=== PATIENT | female | born 1940 | race Caucasian/White ===

== ENCOUNTER → 2016-12-13 | Outpatient (CLI) | payer MEDICARE, BC ==
[~2016-12-13] MED LIST: ASCO100016 PO; HYDR500C PO; MULT1TAB61 PO; OMEG1CAP73 PO; TYLE325T PO; XARE10TA PO
== END ==
LOC: PLAB 08:10
PROVIDERS: ATTEND Family Medicine
DX: L65.9 Nonscarring hair loss, unspecified (principal)
CPT/HCPCS: 36415; 84443

== ENCOUNTER → 2017-02-14 | Outpatient (CLI) | payer MEDICARE, BC ==
[2017-02-14 11:45] LABS: AUTOMATED NEUTROPHIL # 3.6 TH/MM3 (1.8-7.7); BASOPHIL % 0.7 % (0.0-2.0); EOSINOPHIL % 0.5 % (0.0-4.0); HEMATOCRIT 38.8 % (35.0-46.0); HEMO FLAGS DIFF FINAL; LYMPHOCYTE # 1.5 TH/MM3 (1.0-4.8); MEAN CELL VOLUME 105.5 FL (80.0-100.0); MEAN CORPUSCULAR HEMOGLOBIN 35.7 PG (27.0-34.0); MEAN CORPUSCULAR HGB CONC 33.9 % (32.0-36.0); MONO % 17.4 % (0.0-8.0); NEUT % 57.4 % (16.0-70.0); PLATELET COUNT 220 TH/MM3 (150-450); RED BLOOD COUNT 3.68 MIL/MM3 (4.00-5.30); RED CELL DISTRIBUTION WIDTH 12.5 % (11.6-17.2); WHITE BLOOD COUNT 6.2 TH/MM3 (4.0-11.0)
--- NOTE | 2017-02-15 21:14 | EKG ---
Date Performed: 02/14/2017 Time Performed: 11:37:24 PTAGE: 76 years EKG: Sinus rhythm . Normal ECG NO PREVIOUS TRACING DOCTOR: Syeda James Interpretating Date/Time 02/15/2017 21:10:57
[2017-02-16 15:53] LABS: MYELOPEROXIDASE LESS THAN 1.0 AI (<1.0); PROTEINASE-3 LESS THAN 1.0 AI (<1.0)
== END ==
LOC: PHPRE 10:27
PROVIDERS: ATTEND Ophthalmology
DX: Z01.810 Encounter for preprocedural cardiovascular examination (principal); Z01.812 Encounter for preprocedural laboratory examination; D69.1 Qualitative platelet defects
CPT/HCPCS: 36415; 85025; 86021; 93005

== ENCOUNTER → 2017-05-03 | Outpatient (CLI) | payer MEDICARE, BC ==
[2017-05-03 10:40] LABS: HEMATOCRIT 37.9 % (35.0-46.0); MEAN CELL VOLUME 105.4 FL (80.0-100.0); MEAN CORPUSCULAR HEMOGLOBIN 34.7 PG (27.0-34.0); PLATELET COUNT 284 TH/MM3 (150-450); RED BLOOD COUNT 3.59 MIL/MM3 (4.00-5.30); RED CELL DISTRIBUTION WIDTH 12.9 % (11.6-17.2); REVIEW FLAG FINAL; WHITE BLOOD COUNT 7.2 TH/MM3 (4.0-11.0)
== END ==
LOC: PHPRE 10:05
PROVIDERS: ATTEND Ophthalmology
DX: Z01.812 Encounter for preprocedural laboratory examination (principal); H26.9 Unspecified cataract
CPT/HCPCS: 36415; 85027

== ENCOUNTER → 2017-05-30 | Day surgery (SDC) | payer MEDICARE, BC ==
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
--- NOTE | 2017-05-10 09:59 | MH ---
cc: LUCIO ACOSTA DATE OF ADMISSION 05/30/2017 ADMISSION DIAGNOSIS Cataract left eye. HISTORY OF PRESENT ILLNESS This 76-year-old white female is coming through [facility] for the purpose of a lens extraction of the left eye with intraocular lens implant under local anesthesia. She has noted decreasing visual acuity interfering with her daily activities and elected to have the above procedure. Her best corrected visual acuity is 20/40 -1/+1 in the right eye and 20/50 -2/+2 in the left eye in room light. She also has significant astigmatism and is now interested in a Toric intraocular lens if possible at the procedure. PAST MEDICAL HISTORY The patient has a history of: 1. Blood clot in the left leg in the past as well as a platelet Disorder 2. A fractured left leg. 3. The patient does have chronic open angle glaucoma controlled with medication PAST SURGICAL HISTORY Includes three C-sections. MEDICATIONS Daily medications include: 1. Fish oil 2. Centrum Silver 3. Vitamin D 4. Xarelto 5. Hydroxyurea 6. Travatan Z eye drops at bedtime in each eye. ALLERGIES SHE IS ALLERGIC TO STRAWBERRIES AND YELLOW JACKET WASPS AND RED ANTS. SOCIAL HISTORY She does not smoke and has a glass of wine every other day. FAMILY HISTORY The family history is noncontributory. REVIEW OF SYSTEMS HEAD: Patient denies severe headaches, dizziness or recent head injury. EARS: Patient denies hearing loss, ear pain, discharge or ringing in the ears. NOSE: Patient denies nasal discharge, obstruction or frequent colds. MOUTH AND THROAT: Patient denies soreness of the mouth or tongue, bleeding gums, trouble swallowing, changes in voice or sore throat. NECK: Patient denies neck pain or swelling, limitation of neck movement or neck injury. CARDIOPULMONARY SYSTEM: Denies shortness of breath, orthopnea, chronic cough, sputum production, hemoptysis, chest pain, wheezing, or light-headedness. GI SYSTEM: Patient denies poor appetite, nausea, vomiting, abdominal pain, ulcers, or change in bowel habits. She does have hemorrhoids. SYSTEM: The patient denies urinary frequency, dysuria, change in urine color. NERVOUS SYSTEM: Patient denies convulsions, vertigo, stroke, numbness or weakness. PHYSICAL EXAMINATION VITAL SIGNS: Blood pressure is 102/58, pulse 72, respirations 16. HEAD: Normocephalic, atraumatic. NOSE: Without rhinorrhea. THROAT: Clear. NECK: Supple. CHEST: Clear. HEART: Regular rhythm. ABDOMEN: Without tenderness. EXTREMITIES: Without edema. NEUROLOGIC: Within normal limits. MENTAL STATUS: Within normal limits. EYE EXAMINATION The patient's best corrected visual acuity is 20/40 -1/+1 in the right eye and 20/50 -2/+2 in the left eye in room light. Visual frey are full to confrontation testing. Extraocular muscle exam reveals full versions with orthophoria in the distance and exophoria at near. Her pupils are 3 mm equal, round, reactive to light without afferent defect. The anterior segment examination reveals a papilloma of the right upper lid. The patient has a peripheral iridectomy in each eye and corneal guttata. There are nuclear sclerotic cataracts bilaterally. Intraocular pressure is 17 in the right eye and 15 in the left by applanation tonometry. Dilated fundus exam revealed sharp disks with cup-to-disk ratio of 0.3 in the right eye and 0.4 in the left. The macula is clear. A posterior vitreous detachment is present bilaterally. Of note, on the exam, the patient does have four diopters approximately of astigmatism in each eye and we will address this with a Toric intraocular lens if possible. IMPRESSION 1. Bilateral cataracts. 2. Status post laser peripheral iridectomy in both eyes for narrow anterior chamber angles in the past. 3. Chronic open angle glaucoma. 4. Corneal guttata 5. Posterior vitreous detachment both eyes PLAN Lens extraction of the left eye with Toric intraocular lens if possible under local anesthesia through [facility]. The patient has been cleared medically. She has been counseled as to the risks, benefits and alternatives and elected to proceed. She understands we may not use the Toric intraocular lens if there is any contraindications during surgery. I feel that cataract surgery will improve the quality of life and activities of daily living in this patient. MD LITA Yan/TERI /8:25 AM /9:34 AM
[~2017-05-30] VITALS: Ht 157.5 cm; Wt 54.0 kg
[~2017-05-30] MED LIST changes: +ACETYLCHOLINE CHL OPHT SOLN 1:100 2 ML VIAL ONE; +CHLORHEXIDINE GLUCONATE 2 % 1 PACK (2 CLOTHS) TOPICAL PRN; +EPINEPHrine HCL (1:1000) 1 MG/ML VIAL ONE; +HYALURONIDASE/LIDOCAINE/BUPIVACAINE 4.5 ML SYR LEFT EYE ONE; +HYALURONIDASE/LIDOCAINE/BUPIVACAINE 6 ML SYR LEFT EYE ONE; +INSULIN HUMAN REGULAR 1,000 UNITS/10 ML VIAL SQ PRN; +LACTATED RINGER'S 1000 ML IV PRN; +METOPROLOL TARTRATE 25 MG TAB PO PRN; +PILOCARPINE HCL 2% OPHT SOLN 15 ML BTL ONE; +POVIDONE IODINE 5% (ANTISEPSIS KIT) 4 APPLICATIONS EACH NARE PRN; +PROPARACAINE HCL 0.5% OPHT SOLN 15 ML BTL LEFT EYE ONE; +PROPOFOL 200 MG/20 ML AMP ONE; +SODIUM CHLORID 0.9% 500 ML IV PRN; +TOBRAMYCIN/DEXAMETHASONE OPTH OINT 3.5 GM TUBE ONE; +VISCOAT OPHT IRRIG SOLN 0.75 ML SYRINGE ONE; +acetaZOLAMIDE SEQUELS 500 MG SUSTAINED RELEASE CAP ONE
[2017-05-30 09:34] VITALS: PULSE 66
[2017-05-30] MEDS: PHENYLEPHRINE HCL 2.5% OPTH SOLN 2 ML BTL LEFT EYE SCH ×4 (09:35→09:44)
[2017-05-30] MEDS: TROPICAMIDE 1% OPHT SOLN 15 ML BTL LEFT EYE SCH ×4 (09:35→09:44)
[2017-05-30] MEDS: CYCLOPENTOLATE HCL 1% OPHT SOLN 2 ML BTL LEFT EYE SCH ×4 (09:35→09:44)
[2017-05-30] MEDS: DICLOFENAC SOD 0.1% OPHT SOLN 2.5 ML BTL LEFT EYE SCH ×4 (09:35→09:44)
[2017-05-30] MEDS: GATIFLOXACIN 0.5% OPHT SOLN 2.5 ML BTL LEFT EYE SCH ×4 (09:35→09:44)
[2017-05-30 11:25] VITALS: PULSE 65
[2017-05-30 12:55] VITALS: TEMP 98
[2017-05-30 13:20] VITALS: BP 135/73; PULSE 60; RESP 14; O2SAT 97
--- NOTE | 2017-05-31 22:39 | MP ---
cc: LUCIO FREITAS [facility] DATE OF SURGERY: 05/30/2017 PREOPERATIVE DIAGNOSIS: Cataract left eye. POSTOPERATIVE DIAGNOSIS: Cataract left eye. OPERATION: Extracapsular cataract extraction with posterior chamber intraocular lens implant by phacoemulsification, left eye. SURGEON: Lucio Freitas M.D. ANESTHESIA: Local. COMPLICATIONS: None. INDICATIONS: See history and physical previously dictated. OPERATIVE PROCEDURE: The patient's left eye was marked at the 6 o'clock position at the limbus in the preop holding area. The patient had adequate retrobulbar and eyelid blocks administered in the holding area and was brought to the operating room. The left eye was prepped and draped in the usual sterile ophthalmic manner. A lid speculum was inserted in the left eye. A 4-0 silk bridle suture was placed through the conjunctiva near the superior rectus muscle and it was tagged to the drape. A fornix-based conjunctival flap was prepared spanning approximately 5 mm in width. Hemostasis was obtained with wet-field cautery. A 3.5 mm groove was made 1 mm from the limbus and dissected up to the limbus in the form of a scleral pocket incision. A stab incision was then made at the 2 o'clock position. Viscoelastic was injected into the anterior chamber. The anterior chamber was entered with a 2.75 mm keratome through the scleral pocket incision. A 360 degree continuous curvilinear capsulorrhexis was then performed. Hydrodissection was utilized to divide the nucleus into inner and outer components and to separate the cortex from the capsule. Phacoemulsification was then utilized to remove the nucleus. The outer nuclear layer was removed with irrigation and aspiration and short bursts of ultrasound as necessary. The cortex was removed with the irrigation/aspiration handpiece. The posterior capsule was polished with the capsule polisher. Viscoelastic was injected into the capsular bag. The intraocular lens was inspected and found to be in good condition. The lens utilized was an Yahir, model number [id number] with a power of 24.5 diopters. The lens was inserted into the capsular bag and rotated so that the alignment pradhan on the toric lens were at 174 degrees. The viscoelastic in the anterior chamber was then removed with the irrigation-aspiration handpiece. Viscoelastic was also removed from beneath the intraocular lens. The anterior chamber was filled with Miochol-E through the stab incision and pressurized. The wound was checked for leaks at this pressure and normalized pressure, and there were none. The 4-0 bridle suture was removed. The conjunctival flap was brought down over the wound and secured with cautery. Pilocarpine 2% eye drops were instilled topically. The lid speculum was removed. TobraDex ophthalmic ointment was applied. The eye was double patched and shielded. The patient tolerated the procedure well and left the Operating Room in satisfactory condition. MD LITA Yan/FLAVIA /2:23 PM /10:29 PM EMETERIO
== END | disposition home or self-care (01) ==
LOC: PHSDC 08:53
PROVIDERS: ATTEND Ophthalmology
DX: H25.12 Age-related nuclear cataract, left eye (principal); H52.202 Unspecified astigmatism, left eye; H43.813 Vitreous degeneration, bilateral; D69.1 Qualitative platelet defects; Z79.01 Long term (current) use of anticoagulants
CPT/HCPCS: 00142; 66984; J0171; J7040; V2632; V2787

== ENCOUNTER → 2017-06-13 | Outpatient (CLI) | payer MEDICARE, BC ==
[~2017-06-13] MED LIST changes: -ACETYLCHOLINE CHL OPHT SOLN 1:100 2 ML VIAL ONE; -CHLORHEXIDINE GLUCONATE 2 % 1 PACK (2 CLOTHS) TOPICAL PRN; -EPINEPHrine HCL (1:1000) 1 MG/ML VIAL ONE; -HYALURONIDASE/LIDOCAINE/BUPIVACAINE 4.5 ML SYR LEFT EYE ONE; -HYALURONIDASE/LIDOCAINE/BUPIVACAINE 6 ML SYR LEFT EYE ONE; -INSULIN HUMAN REGULAR 1,000 UNITS/10 ML VIAL SQ PRN; -LACTATED RINGER'S 1000 ML IV PRN; -METOPROLOL TARTRATE 25 MG TAB PO PRN; -PILOCARPINE HCL 2% OPHT SOLN 15 ML BTL ONE; -POVIDONE IODINE 5% (ANTISEPSIS KIT) 4 APPLICATIONS EACH NARE PRN; -PROPARACAINE HCL 0.5% OPHT SOLN 15 ML BTL LEFT EYE ONE; -PROPOFOL 200 MG/20 ML AMP ONE; -SODIUM CHLORID 0.9% 500 ML IV PRN; -TOBRAMYCIN/DEXAMETHASONE OPTH OINT 3.5 GM TUBE ONE; -VISCOAT OPHT IRRIG SOLN 0.75 ML SYRINGE ONE; -acetaZOLAMIDE SEQUELS 500 MG SUSTAINED RELEASE CAP ONE
[2017-06-13 13:26] LABS: AUTOMATED NEUTROPHIL # 4.6 TH/MM3 (1.8-7.7); BASOPHIL % 0.5 % (0.0-2.0); EOSINOPHIL % 0.5 % (0.0-4.0); HEMATOCRIT 41.2 % (35.0-46.0); HEMO FLAGS DIFF FINAL; LYMPH % 20.8 % (9.0-44.0); LYMPHOCYTE # 1.5 TH/MM3 (1.0-4.8); MEAN CELL VOLUME 106.5 FL (80.0-100.0); MEAN CORPUSCULAR HEMOGLOBIN 35.2 PG (27.0-34.0); MEAN CORPUSCULAR HGB CONC 33.1 % (32.0-36.0); MONO % 16.8 % (0.0-8.0); NEUT % 61.4 % (16.0-70.0); PLATELET COUNT 273 TH/MM3 (150-450); RED BLOOD COUNT 3.87 MIL/MM3 (4.00-5.30); RED CELL DISTRIBUTION WIDTH 12.6 % (11.6-17.2); WHITE BLOOD COUNT 7.4 TH/MM3 (4.0-11.0)
[2017-06-13 13:39] LABS: ANION GAP 5 MEQ/L (5-15); AST (GOT) 21 U/L (15-37); BICARBONATE 31.4 MEQ/L (21.0-32.0); BLOOD UREA NITROGEN 15 MG/DL (7-18); CHLORIDE 103 MEQ/L (98-107); GLOMERULAR FILTRATION RATE 50 ML/MIN (>89); GLUCOSE,FASTING 73 MG/DL (74-99); POTASSIUM 3.8 MEQ/L (3.5-5.1); SODIUM (NA) 139 MEQ/L (136-145)
[2017-06-13 13:44] LABS: ALKALINE PHOSPHATASE 88 U/L (45-117); ALT (GPT) 22 U/L (10-53); TOTAL BILIRUBIN ADULT 0.4 MG/DL (0.2-1.0)
== END ==
LOC: PLAB 08:59
PROVIDERS: ATTEND Family Medicine
DX: D72.828 Other elevated white blood cell count (principal); D69.6 Thrombocytopenia, unspecified
CPT/HCPCS: 36415; 80053; 85025

== ENCOUNTER → 2018-01-09 | Outpatient (CLI) | payer MEDICARE, BC ==
[~2018-01-09] MED LIST changes: -ASCO100016 PO; +ASCO100029 PO; +BALANCED SALT SOLN OPHT IRRIG 15 ML BTL ONE; +FLUOROMETHOLONE 0.25% OPHT SUSP 5 ML BTL ONE; +HYPROMELLOSE 0.3 % OPTH GEL 10 GM (0.34 FL OZ) TUBE ONE; -OMEG1CAP73 PO; +PHENYLEPHRINE HCL 2.5% OPTH SOLN 2 ML BTL ONE; +PROPARACAINE HCL 0.5% OPHT SOLN 15 ML BTL ONE; +TROPICAMIDE 1% OPHT SOLN 15 ML BTL ONE; +[UNRECOGNIZED DRUG - CODE] PO
--- NOTE | 2018-01-09 08:07 | MH ---
cc: Tru Freitas MD DATE OF ADMISSION: 01/09/2018 ADMISSION DIAGNOSIS: Cloudy posterior capsule, left eye. HISTORY OF PRESENT ILLNESS: This 77-year-old white female is status post cataract surgery with intraocular lens implant on her left eye and has done well postoperatively, but now notices decreasing visual acuity in both eyes. She was found to have cataract in her right eye and cloudy posterior capsule in her left eye and we have elected to get rid of the cloudy posterior capsule first before she has cataract surgery on her right eye. PAST MEDICAL HISTORY: The patient has a history of blood clots in the left leg and a platelet disorder (MPD). The patient also has chronic open angle glaucoma, moderate in the right eye and severe in the left for which she takes Travatan Z eyedrops at bedtime in both eyes. PAST SURGICAL HISTORY: Includes 3 C-sections and the cataract surgery on the left eye. DAILY MEDICATIONS: Include: Xarelto, hydroxyurea, fish oil, Centrum Silver. ALLERGIES: SHE IS ALLERGIC TO WASP, YELLOW JACKETS, RED ANTS AND STRAWBERRIES. FAMILY HISTORY: Noncontributory. REVIEW OF SYSTEMS: Noncontributory. OCULAR EXAMINATION: The patient's best corrected visual acuity is 20/40 in the right eye and 20/25 -2 in the left. Visual frey are full to confrontation testing. Extraocular muscle exam reveals full versions with orthophoria in the distance and exophoria at near. Pupils are 3 mm, equal, round, reactive to light, without afferent defect. Anterior segment examination reveals a papilloma of the right upper lid and corneal guttata. She also has peripheral iridectomy in both eyes. There is nuclear sclerotic cataract in her right eye and a posterior chamber intraocular lens in her left with a cloudy posterior capsule. Intraocular pressure is 21 in the right eye and 16 in the left by applanation tonometry. Dilated fundus exam revealed sharp disc with cup-to-disc ratio of 0.3 in the right eye and 0.4 in the left. Macula is clear bilaterally. A posterior vitreous detachment is present bilaterally. IMPRESSION: 1. Cloudy posterior capsule, left eye. 2. Pseudophakia, left eye. 3. Cataract, right eye. 4. Chronic open angle glaucoma, both eyes. 5. Posterior vitreous detachment, both eyes. 6. Status post laser peripheral iridectomy, both eyes. PLAN: YAG laser posterior capsulotomy of the left eye through [facility]. MD LITA Yan/SANDRA , 02:31 PM , 02:54 PM
--- NOTE | 2018-01-09 13:11 | MP ---
cc: Tru Freitas MD DATE OF OPERATION: 01/09/2018 POSTOPERATIVE DIAGNOSIS: Cloudy posterior capsule left eye. OPERATION: YAG laser posterior capsulotomy, left eye. SURGEON: Tru Freitas MD ANESTHESIA: Topical. COMPLICATIONS: None. INDICATIONS: See history and physical previously dictated. PROCEDURE: The patient arrived at [facility]. Blood pressure was 125/56, pulse 67, respirations 20. A drop of Alphagan P and Mydriacyl were instilled in the left eye. The patient was seated at the YAG laser. A drop of Alcaine was instilled in the left eye and a YAG laser posterior capsulotomy lens was placed on the anterior surface of the left cornea. YAG laser posterior capsulotomy was carried out utilizing 87 exposures of 1.5 millijoules. An adequate opening was seen following the procedure. A drop of Alphagan P was instilled topically. The patient was given a prescription for a topical steroid to be used four times per day and has an appointment for follow up on the first postoperative day in my office. The patient left the [facility] in satisfactory condition. Tru Freitas MD PONY ROLL FINISHER/SB , 12:42 PM , 01:11 PM
== END ==
LOC: PHSDC 11:20
PROVIDERS: ATTEND Ophthalmology
DX: H26.492 Other secondary cataract, left eye (principal); H40.10X0 Unspecified open-angle glaucoma, stage unspecified; H43.813 Vitreous degeneration, bilateral; D69.1 Qualitative platelet defects; Z96.1 Presence of intraocular lens

== ENCOUNTER → 2018-02-20 | Outpatient (CLI) | payer MEDICARE, BC ==
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
--- NOTE | 2018-02-20 11:54 | MP ---
cc: Tru Freitas MD DATE OF OPERATION: 02/20/2018 PREOPERATIVE DIAGNOSIS: Cloudy posterior capsule remnant, left eye. POSTOPERATIVE DIAGNOSIS: Cloudy posterior capsule remnant, left eye. OPERATION: YAG laser posterior capsulotomy enhancement, left eye. SURGEON: Tru Freitas MD ANESTHESIA: Topical. COMPLICATIONS: None. INDICATIONS: See history and physical previously dictated. PROCEDURE: The patient arrived at [facility]. Blood pressure was 109/59, pulse 67, respirations 16. The patient was seated at the YAG laser. A drop of Alcaine was instilled in the left eye and a YAG laser posterior capsulotomy lens was placed on the anterior surface of the left cornea. YAG laser posterior capsulotomy was carried out utilizing 62 exposures of 1.7 Millijoules. An adequate opening was seen following the procedure. The patient was given a prescription for a topical steroid to be used four times per day and has an appointment for follow up on the first postoperative day in my office. The patient left the [facility] in satisfactory condition. Tru Freitas MD COLLABORATIVE TEACHER/DL , 11:30 AM , 11:53 AM
== END ==
LOC: PHSDC 09:44
PROVIDERS: ATTEND Ophthalmology
DX: H26.492 Other secondary cataract, left eye (principal); I82.502 Chronic embolism and thrombosis of unspecified deep veins of left lower extremity; D69.1 Qualitative platelet defects; Z79.01 Long term (current) use of anticoagulants